=== PATIENT | female | born 1960 | race Caucasian/White ===

== ENCOUNTER 2017-07-21 03:49 | Emergency (ER) | payer OTHER ==
[~2017-07-21] VITALS: Ht 162.6 cm; Wt 79.4 kg
[~2017-07-21 03:49] MED LIST: ALBIPROI; ALBU.083IS; ALBU.083IS IH; ALBU3IS INH; ALBU90OI; ALBU90OI INH; ALBU90OI6 INH; ALBU90OI61 INH; AMOCLA500 PO; AMOX500 PO; ARIP10 PO; ARIP30 PO; ATEN50; ATEN50 PO; AZIT250 PO; Advair Hfa 230-12 GM; BENZ1 PO; BENZ100A PO; BENZ2 PO; BUSP15; BUSP5; CIPDEXSU BOTHEARS; CIPR500 PO; CLAR500 PO; CLARITIN10 MG PO; CLON.5; CLON.5 PO; CLON1 PO; CYCL10 PO; DOCU100 PO; DOXY100; DOXY100 PO; Duoneb 2.5-0.5 M3 ML INH; ECHINACEA PO; ERYT.5TO OD; Echinacea400 MG PO; FLUOXETINE; FLUSAL1005 INH; FLUSAL2505; FLUSAL2505 IH; FLUT.05NI; FLUT110OIA; FLUT44OIA IH; GUAPHELA PO; GUAPSEER; HYDACE10B; HYDACE10B PO; HYDACE5; HYDACE5 PO; HYDGUAL120 PO; HYDHCL25; HYDR1TAB94 PO; IBUP800; IPRAIS; IPRAOI; IPRAOI INH; ISODICACE; Inspiration1 EACH MC; LEVFLO500 PO; LEVO750 PO; LEVSOD25 PO; LEVSOD50 PO; LORA10 PO; MECL25 PO; META800 PO; METH10; METH40; METPRE4DP PO; MONT10T; MONT10T PO; Monodox100 MG PO; NAPR500; NAPR500 PO; NICO2 PO; NORT25; NYST100SU MT; Naprosyn500 MG PO; Norco 5-325 Ta1 EACH PO; OLANZAPINE; OMEP20ER PO; OXYACE5T PO; OXYACE7.5T PO; PRED10 PO; PRED20 PO; PROCODE120 PO; PROM25 PO; PSEU120ER PO; Prednisone20 MG PO; Pseudoephedrine30 MG PO; RANI150; RANI150 PO; RXCYCL10 PO; RXHYDACE PO; RXSULTRIDS PO; Ranitidine HCl300 M1 PO; SALM50IP; SALMOI6.5; SENN187 PO; SERT100; SODCHL.65S; SUDOGEST; SULTRIDS PO; SYMBYAX; Senna Plus Tab1 EACH PO; Sudogest30 MG PO; Synthroid25 MCG PO; TIOT18; TIOT18 IH; TRAM50; TRAM50 PO; TRAZ100; Therapeutic M1 EAC4 PO; Zithromax250 MG PO
[2017-07-21] MEDS ORDERED: CYCL10 PO (04:01)
[2017-07-21 04:33] LABS: BASOPHILS ABSOLUTE AUTO 0.01 K/mm3 (0.00-0.23); BASOPHILS PERCENT AUTO 0 % (0-2); EOSINOPHILS ABSOLUTE AUTO 0.09 K/mm3 (0.00-0.68); EOSINOPHILS PERCENT AUTO 2 % (0-6); Hematocrit 39.4 % (33.0-51.0); Hemoglobin 12.7 g/dL (11.5-16.0); IMMATURE GRAN ABSOLUTE AUTO 0.02 K/mm3 (0.00-0.10); IMMATURE GRAN PERCENT AUTO 0 % (0-1); LYMPHOCYTES ABSOLUTE AUTO 2.64 K/mm3 (0.84-5.20); LYMPHOCYTES PERCENT AUTO 43 % (21-46); MONOCYTES ABSOLUTE AUTO 0.48 K/mm3 (0.16-1.47); MONOCYTES PERCENT AUTO 8 % (4-13); Mean Corpuscular HGB 29.3 pg (26.0-34.0); Mean Corpuscular HGB Conc 32.2 g/dL (31.5-36.5); Mean Corpuscular Volume 91 fL (80-100); Mean Platelet Volume 10.1 fL (9.1-12.4); NEUTROPHILS ABSOLUTE AUTO 2.88 K/mm3 (1.96-9.15); NEUTROPHILS PERCENT AUTO 47 % (41-73); Platelet Count 242 K/mm3 (150-400); RDW Standard Deviation 43.3 fL (35.1-46.3); Red Blood Cell Count 4.34 M/mm3 (3.80-5.20); White Blood Cell Count 6.12 K/mm3 (4.00-11.30)
[2017-07-21 04:54] LABS: Alanine Aminotransfer (ALT/SGP 29 U/L (12-78); Albumin, Blood 3.4 g/dL (3.4-5.0); Alk Phos 77 U/L (50-136); Anion Gap 5 mmol/L (6-16); Aspartate Aminotrans (AST/SGOT 28 U/L (12-37); Bilirubin, Total 0.3 mg/dL (0.1-1.0); Blood Urea Nitrogen 16 mg/dL (8-24); Bun/Creatinine Ratio 22.2 (12.0-20.0); CO2, Blood 31 mmol/L (21-32); Calcium, Blood 8.8 mg/dL (8.5-10.1); Chloride, Blood 105 mmol/L (98-108); Creatinine, Blood 0.72 mg/dL (0.40-1.00); Globulin, Blood 3.4 g/dL (2.2-4.0); Glomerular Filtration Rate >60 (60-); Glucose, Blood 121 mg/dL (70-99); Potassium, Blood 3.6 mmol/L (3.5-5.5); Sodium, Blood 141 mmol/L (136-145); Total Protein, Blood 6.8 g/dL (6.4-8.2); Troponin I <0.015 ng/mL (0.000-0.040)
== END 2017-07-21 06:31 | disposition home or self-care (01) ==
LOC: ER 03:49
PROVIDERS: Emergency Medicine
DX: R07.9 Chest pain, unspecified (principal); J44.9 Chronic obstructive pulmonary disease, unspecified; J45.909 Unspecified asthma, uncomplicated; F31.9 Bipolar disorder, unspecified; I50.9 Heart failure, unspecified; Z79.899 Other long term (current) drug therapy; Z87.891 Personal history of nicotine dependence
CPT/HCPCS: 71046; 80053; 84484; 85025; 93005; 93010; 99283

== ENCOUNTER 2018-03-29 14:59 | Emergency (ER) | payer OTHER ==
[~2018-03-29] VITALS: Ht 162.6 cm; Wt 76.2 kg
[2018-03-29 15:15] LABS: BASOPHILS ABSOLUTE AUTO 0.02 K/mm3 (0.00-0.23); BASOPHILS PERCENT AUTO 0 % (0-2); EOSINOPHILS ABSOLUTE AUTO 0.06 K/mm3 (0.00-0.68); EOSINOPHILS PERCENT AUTO 1 % (0-6); Hematocrit 41.1 % (33.0-51.0); Hemoglobin 13.1 g/dL (11.5-16.0); IMMATURE GRAN ABSOLUTE AUTO 0.02 K/mm3 (0.00-0.10); IMMATURE GRAN PERCENT AUTO 0 % (0-1); LYMPHOCYTES ABSOLUTE AUTO 2.59 K/mm3 (0.84-5.20); LYMPHOCYTES PERCENT AUTO 39 % (21-46); MONOCYTES ABSOLUTE AUTO 0.55 K/mm3 (0.16-1.47); MONOCYTES PERCENT AUTO 8 % (4-13); Mean Corpuscular HGB 29.3 pg (26.0-34.0); Mean Corpuscular HGB Conc 31.9 g/dL (31.5-36.5); Mean Corpuscular Volume 92 fL (80-100); Mean Platelet Volume 10.1 fL (9.1-12.4); NEUTROPHILS ABSOLUTE AUTO 3.48 K/mm3 (1.96-9.15); NEUTROPHILS PERCENT AUTO 52 % (41-73); Platelet Count 282 K/mm3 (150-400); RDW Coefficient Variation 12.7 % (11.7-14.2); RDW Standard Deviation 43.2 fL (35.1-46.3); Red Blood Cell Count 4.47 M/mm3 (3.80-5.20); White Blood Cell Count 6.72 K/mm3 (4.00-11.30)
[2018-03-29 15:35] LABS: Alanine Aminotransfer (ALT/SGP 30 U/L (12-78); Albumin, Blood 3.5 g/dL (3.4-5.0); Albumin/Globulin Ratio 0.9 (0.8-1.8); Alk Phos 89 U/L (50-136); Anion Gap 5 mmol/L (6-16); Aspartate Aminotrans (AST/SGOT 25 U/L (12-37); Bilirubin, Total 0.3 mg/dL (0.1-1.0); Blood Urea Nitrogen 11 mg/dL (8-24); Bun/Creatinine Ratio 14.4 (12.0-20.0); CO2, Blood 32 mmol/L (21-32); Calcium, Blood 9.3 mg/dL (8.5-10.1); Chloride, Blood 103 mmol/L (98-108); Creatinine, Blood 0.76 mg/dL (0.40-1.00); Globulin, Blood 3.9 g/dL (2.2-4.0); Glomerular Filtration Rate >60 (60-); Glucose, Blood 111 mg/dL (70-99); Potassium, Blood 4.1 mmol/L (3.5-5.5); Sodium, Blood 140 mmol/L (136-145); Total Protein, Blood 7.4 g/dL (6.4-8.2); Troponin I <0.015 ng/mL (0.000-0.040)
[2018-03-29] MEDS ORDERED: Zantac150 MG PO (15:42)
[2018-03-29] MEDS ORDERED: ALBU2.5V5 INH (15:43)
[2018-03-29] MEDS ORDERED: ATEN25 PO (15:44)
[2018-03-29] MEDS ORDERED: NAPR500 PO (15:44)
[2018-03-29] MEDS ORDERED: ALBU90OI61 INH (15:44)
[2018-03-29] MEDS ORDERED: Echinacea400 MG PO (15:45)
[2018-03-29] MEDS ORDERED: Atrovent Inha12.9 GM INH (15:45)
[2018-03-29] MEDS ORDERED: LORPSEER24 PO (15:46)
[2018-03-29] MEDS ORDERED: ASCO500 PO (15:46)
[2018-03-29] MEDS ORDERED: BUDE6HFA INH (15:46)
[2018-03-29] MEDS ORDERED: LEVSOD125 PO (15:47)
[2018-03-29] MEDS ORDERED: CYCL10 PO (15:47)
[2018-03-29] MEDS ORDERED: ALLEGRA ALLERG180 M1 PO (15:48)
[2018-03-29] MEDS ORDERED: Verotin-Gr Cap1 EACH PO (15:48)
[2018-03-29] MEDS ORDERED: PSEU120ER PO (15:49)
[2018-03-29] MEDS ORDERED: NYST100000 PO (15:49)
[2018-03-29] MEDS ORDERED: Calcium 600 +1 EAC1 PO (15:49)
[2018-03-29] MEDS ORDERED: Percocet 7.5-31 EACH PO (15:50)
[2018-03-29] MEDS ORDERED: DULO30 PO (15:50)
[2018-03-29] MEDS ORDERED: GUAIFENESIN-CODE5 ML PO (15:52)
[2018-03-29] MEDS ORDERED: Ipratropium Bro15 ML (15:52)
[2018-03-29] MEDS ORDERED: TUDORZA PRESS400 MCG INH (15:53)
== END 2018-03-29 17:03 | disposition home or self-care (01) ==
LOC: ER 14:59
PROVIDERS: Physician Assistant
DX: J43.9 Emphysema, unspecified (principal); F31.9 Bipolar disorder, unspecified; I50.9 Heart failure, unspecified; F20.9 Schizophrenia, unspecified; F17.210 Nicotine dependence, cigarettes, uncomplicated; Z79.899 Other long term (current) drug therapy; Z79.51 Long term (current) use of inhaled steroids
CPT/HCPCS: 36415; 71046; 80053; 83880; 84484; 85025; 93005; 93010; 99284-25

== ENCOUNTER 2018-11-03 09:58 | Emergency (ER) | payer OTHER ==
[~2018-11-03] VITALS: Ht 162.6 cm; Wt 74.8 kg
[~2018-11-03 09:58] MED LIST changes: +ALBU2.5V5 INH; +ALLEGRA ALLERG180 M1 PO; +ASCO500 PO; +ATEN25 PO; +Atrovent Inha12.9 GM INH; +BUDE6HFA INH; +Calcium 600 +1 EAC1 PO; +DULO30 PO; +GUAIFENESIN-CODE5 ML PO; +Ipratropium Bro15 ML; +LEVSOD125 PO; +LORPSEER24 PO; +NYST100000 PO; +Percocet 7.5-31 EACH PO; +TUDORZA PRESS400 MCG INH; +Verotin-Gr Cap1 EACH PO; +Zantac150 MG PO
[2018-11-03 10:32] LABS: BASOPHILS ABSOLUTE AUTO 0.02 K/mm3 (0.00-0.23); BASOPHILS PERCENT AUTO 0 % (0-2); EOSINOPHILS ABSOLUTE AUTO 0.05 K/mm3 (0.00-0.68); EOSINOPHILS PERCENT AUTO 1 % (0-6); Hematocrit 44.3 % (33.0-51.0); Hemoglobin 13.8 g/dL (11.5-16.0); IMMATURE GRAN ABSOLUTE AUTO 0.02 K/mm3 (0.00-0.10); IMMATURE GRAN PERCENT AUTO 0 % (0-1); LYMPHOCYTES ABSOLUTE AUTO 1.64 K/mm3 (0.84-5.20); LYMPHOCYTES PERCENT AUTO 33 % (21-46); MONOCYTES ABSOLUTE AUTO 0.37 K/mm3 (0.16-1.47); MONOCYTES PERCENT AUTO 7 % (4-13); Mean Corpuscular HGB 29.6 pg (26.0-34.0); Mean Corpuscular HGB Conc 31.2 g/dL (31.5-36.5); Mean Corpuscular Volume 95 fL (80-100); Mean Platelet Volume 9.8 fL (9.1-12.4); NEUTROPHILS ABSOLUTE AUTO 2.95 K/mm3 (1.96-9.15); NEUTROPHILS PERCENT AUTO 58 % (41-73); Platelet Count 247 K/mm3 (150-400); RDW Coefficient Variation 14.6 % (11.7-14.2); Red Blood Cell Count 4.66 M/mm3 (3.80-5.20); White Blood Cell Count 5.05 K/mm3 (4.00-11.30)
[2018-11-03 10:56] LABS: Alanine Aminotransfer (ALT/SGP 30 U/L (12-78); Albumin, Blood 3.7 g/dL (3.4-5.0); Alk Phos 95 U/L (50-136); Anion Gap 6 mmol/L (6-16); Aspartate Aminotrans (AST/SGOT 13 U/L (12-37); Bilirubin, Total 0.2 mg/dL (0.1-1.0); Blood Urea Nitrogen 10 mg/dL (8-24); Bun/Creatinine Ratio 13.6 (12.0-20.0); CO2, Blood 29 mmol/L (21-32); Calcium, Blood 9.6 mg/dL (8.5-10.1); Chloride, Blood 105 mmol/L (98-108); Creatinine, Blood 0.73 mg/dL (0.40-1.00); Globulin, Blood 3.7 g/dL (2.2-4.0); Glomerular Filtration Rate >60 (60-); Glucose, Blood 104 mg/dL (70-99); Potassium, Blood 3.7 mmol/L (3.5-5.5); Sodium, Blood 140 mmol/L (136-145); Total Protein, Blood 7.4 g/dL (6.4-8.2); Troponin I <0.015 ng/mL (0.000-0.040)
== END 2018-11-03 12:58 | disposition home or self-care (01) ==
LOC: ER 09:58
PROVIDERS: Emergency Medicine
DX: R07.9 Chest pain, unspecified (principal); J44.9 Chronic obstructive pulmonary disease, unspecified; F31.9 Bipolar disorder, unspecified; I50.9 Heart failure, unspecified; F17.210 Nicotine dependence, cigarettes, uncomplicated; Z79.899 Other long term (current) drug therapy
CPT/HCPCS: 36415; 71046; 80053; 83690; 83880; 84484; 85025; 93005; 93010; 99285-25

== ENCOUNTER 2018-11-06 04:01 | Emergency (ER) | payer OTHER ==
[~2018-11-06] VITALS: Ht 162.6 cm; Wt 74.8 kg
[2018-11-06 04:23] LABS: BASOPHILS ABSOLUTE AUTO 0.02 K/mm3 (0.00-0.23); BASOPHILS PERCENT AUTO 0 % (0-2); EOSINOPHILS ABSOLUTE AUTO 0.08 K/mm3 (0.00-0.68); EOSINOPHILS PERCENT AUTO 1 % (0-6); Hematocrit 43.8 % (33.0-51.0); Hemoglobin 13.6 g/dL (11.5-16.0); IMMATURE GRAN ABSOLUTE AUTO 0.03 K/mm3 (0.00-0.10); IMMATURE GRAN PERCENT AUTO 0 % (0-1); LYMPHOCYTES ABSOLUTE AUTO 2.64 K/mm3 (0.84-5.20); LYMPHOCYTES PERCENT AUTO 39 % (21-46); MONOCYTES ABSOLUTE AUTO 0.53 K/mm3 (0.16-1.47); MONOCYTES PERCENT AUTO 8 % (4-13); Mean Corpuscular HGB 29.8 pg (26.0-34.0); Mean Corpuscular HGB Conc 31.1 g/dL (31.5-36.5); Mean Corpuscular Volume 96 fL (80-100); Mean Platelet Volume 9.7 fL (9.1-12.4); NEUTROPHILS ABSOLUTE AUTO 3.48 K/mm3 (1.96-9.15); NEUTROPHILS PERCENT AUTO 51 % (41-73); Platelet Count 249 K/mm3 (150-400); RDW Coefficient Variation 14.7 % (11.7-14.2); RDW Standard Deviation 51.9 fL (35.1-46.3); Red Blood Cell Count 4.57 M/mm3 (3.80-5.20); White Blood Cell Count 6.78 K/mm3 (4.00-11.30)
[2018-11-06 04:32] LABS: Base Excess Venous 6.6 mmol/L; Bicarbonate Venous 27.6 mmol/L (24.0-30.0); PCO2 Venous 59.1 mmHg (38-42); PO2 Venous 24.1 mmHg (38-42); pH Blood Venous 7.35 (7.34-7.37)
[2018-11-06 04:42] LABS: Alanine Aminotransfer (ALT/SGP 36 U/L (12-78); Albumin, Blood 3.7 g/dL (3.4-5.0); Alk Phos 86 U/L (50-136); Anion Gap 4 mmol/L (6-16); Aspartate Aminotrans (AST/SGOT 21 U/L (12-37); Bilirubin, Total 0.2 mg/dL (0.1-1.0); Blood Urea Nitrogen 16 mg/dL (8-24); Bun/Creatinine Ratio 21.4 (12.0-20.0); CO2, Blood 32 mmol/L (21-32); Calcium, Blood 9.5 mg/dL (8.5-10.1); Chloride, Blood 103 mmol/L (98-108); Creatinine, Blood 0.75 mg/dL (0.40-1.00); Globulin, Blood 3.6 g/dL (2.2-4.0); Glomerular Filtration Rate >60 (60-); Glucose, Blood 96 mg/dL (70-99); Potassium, Blood 4.2 mmol/L (3.5-5.5); Sodium, Blood 139 mmol/L (136-145); Total Protein, Blood 7.3 g/dL (6.4-8.2); Troponin I <0.015 ng/mL (0.000-0.040)
[2018-11-06] MEDS ORDERED: Prednisone20 MG PO (05:33)
== END 2018-11-06 05:55 | disposition home or self-care (01) ==
LOC: ER 04:01
PROVIDERS: Emergency Medicine
DX: J44.1 Chronic obstructive pulmonary disease with (acute) exacerbation (principal); F17.210 Nicotine dependence, cigarettes, uncomplicated; I50.9 Heart failure, unspecified; Z79.899 Other long term (current) drug therapy
CPT/HCPCS: 71046; 80053; 82803; 84484; 85025; 93005; 93010; 96374; 99285-25; J2930

== ENCOUNTER 2019-01-10 02:34 | Emergency (ER) | payer OTHER ==
[~2019-01-10] VITALS: Ht 162.6 cm; Wt 76.7 kg
[~2019-01-10 02:34] MED LIST changes: +ATOR80 PO; +Aspir 8181 MG PO; +Cyclobenzaprine5 MG PO; +DULO60 PO; +LEVO-T25 MCG PO; +NITR.4SL SL; +ONDA4ODT MM; +Percocet 5-3251 EACH PO; -Percocet 7.5-31 EACH PO; +TRAZ50 PO; +ZYRTEC10 M1 PO
[2019-01-10 03:03] LABS: BASOPHILS ABSOLUTE AUTO 0.03 K/mm3 (0.00-0.23); BASOPHILS PERCENT AUTO 0 % (0-2); EOSINOPHILS ABSOLUTE AUTO 0.07 K/mm3 (0.00-0.68); EOSINOPHILS PERCENT AUTO 1 % (0-6); Hematocrit 41.6 % (33.0-51.0); IMMATURE GRAN ABSOLUTE AUTO 0.02 K/mm3 (0.00-0.10); IMMATURE GRAN PERCENT AUTO 0 % (0-1); LYMPHOCYTES ABSOLUTE AUTO 2.59 K/mm3 (0.84-5.20); LYMPHOCYTES PERCENT AUTO 36 % (21-46); MONOCYTES ABSOLUTE AUTO 0.53 K/mm3 (0.16-1.47); MONOCYTES PERCENT AUTO 8 % (4-13); Mean Corpuscular HGB 29.8 pg (26.0-34.0); Mean Corpuscular HGB Conc 31.3 g/dL (31.5-36.5); Mean Corpuscular Volume 95 fL (80-100); Mean Platelet Volume 9.6 fL (9.1-12.4); NEUTROPHILS ABSOLUTE AUTO 3.87 K/mm3 (1.96-9.15); NEUTROPHILS PERCENT AUTO 54 % (41-73); Platelet Count 325 K/mm3 (150-400); RDW Coefficient Variation 13.6 % (11.7-14.2); RDW Standard Deviation 48.1 fL (35.1-46.3); Red Blood Cell Count 4.36 M/mm3 (3.80-5.20); White Blood Cell Count 7.11 K/mm3 (4.00-11.30)
[2019-01-10 03:32] LABS: Alanine Aminotransfer (ALT/SGP 29 U/L (12-78); Albumin, Blood 3.5 g/dL (3.4-5.0); Alk Phos 89 U/L (50-136); Anion Gap 3 mmol/L (6-16); Aspartate Aminotrans (AST/SGOT 23 U/L (12-37); Bilirubin, Total 0.2 mg/dL (0.1-1.0); Blood Urea Nitrogen 14 mg/dL (8-24); Bun/Creatinine Ratio 18.6 (12.0-20.0); CO2, Blood 31 mmol/L (21-32); Chloride, Blood 107 mmol/L (98-108); Creatinine, Blood 0.75 mg/dL (0.40-1.00); Globulin, Blood 3.5 g/dL (2.2-4.0); Glomerular Filtration Rate >60 (60-); Glucose, Blood 106 mg/dL (70-99); Potassium, Blood 3.9 mmol/L (3.5-5.5); Sodium, Blood 141 mmol/L (136-145)
[2019-01-10 03:38] LABS: Calcium, Blood 9.3 mg/dL (8.5-10.1)
[2019-01-10] MEDS ORDERED: Miralax17 GM PO (04:34)
== END 2019-01-10 04:49 | disposition home or self-care (01) ==
LOC: ER 02:34
PROVIDERS: Emergency Medicine
DX: R10.13 Epigastric pain (principal); R11.2 Nausea with vomiting, unspecified; J44.9 Chronic obstructive pulmonary disease, unspecified; I50.9 Heart failure, unspecified; Z79.899 Other long term (current) drug therapy
CPT/HCPCS: 36415; 74019; 80053; 83690; 85025; 94640; 96374; 99284-25; J2405

== ENCOUNTER 2019-05-04 18:43 | Emergency (ER) | payer OTHER ==
[~2019-05-04] VITALS: Ht 162.6 cm; Wt 74.8 kg
[~2019-05-04 18:43] MED LIST changes: +Miralax17 GM PO
[2019-05-04 19:34] LABS: BASOPHILS ABSOLUTE AUTO 0.02 K/mm3 (0.00-0.23); BASOPHILS PERCENT AUTO 0 % (0-2); EOSINOPHILS PERCENT AUTO 1 % (0-6); Hematocrit 39.7 % (33.0-51.0); Hemoglobin 12.6 g/dL (11.5-16.0); IMMATURE GRAN ABSOLUTE AUTO 0.01 K/mm3 (0.00-0.10); IMMATURE GRAN PERCENT AUTO 0 % (0-1); LYMPHOCYTES ABSOLUTE AUTO 2.24 K/mm3 (0.84-5.20); LYMPHOCYTES PERCENT AUTO 29 % (21-46); MONOCYTES PERCENT AUTO 8 % (4-13); Mean Corpuscular HGB 30.1 pg (26.0-34.0); Mean Corpuscular HGB Conc 31.7 g/dL (31.5-36.5); Mean Corpuscular Volume 95 fL (80-100); Mean Platelet Volume 9.9 fL (9.1-12.4); NEUTROPHILS ABSOLUTE AUTO 4.73 K/mm3 (1.96-9.15); NEUTROPHILS PERCENT AUTO 61 % (41-73); Platelet Count 252 K/mm3 (150-400); RDW Coefficient Variation 14.1 % (11.7-14.2); RDW Standard Deviation 49.6 fL (35.1-46.3); Red Blood Cell Count 4.19 M/mm3 (3.80-5.20)
[2019-05-04 20:04] LABS: Alanine Aminotransfer (ALT/SGP 26 U/L (12-78); Albumin, Blood 3.6 g/dL (3.4-5.0); Albumin/Globulin Ratio 1.1 (0.8-1.8); Alk Phos 81 U/L (50-136); Anion Gap 2 mmol/L (6-16); Aspartate Aminotrans (AST/SGOT 13 U/L (12-37); Bilirubin, Total 0.4 mg/dL (0.1-1.0); Blood Urea Nitrogen 18 mg/dL (8-24); CO2, Blood 31 mmol/L (21-32); Calcium, Blood 8.9 mg/dL (8.5-10.1); Chloride, Blood 108 mmol/L (98-108); Creatinine, Blood 0.78 mg/dL (0.40-1.00); Globulin, Blood 3.2 g/dL (2.2-4.0); Glomerular Filtration Rate >60 (60-); Glucose, Blood 110 mg/dL (70-99); Potassium, Blood 4.3 mmol/L (3.5-5.5); Sodium, Blood 141 mmol/L (136-145); Total Protein, Blood 6.8 g/dL (6.4-8.2); Troponin I <0.015 ng/mL (0.000-0.040)
[2019-05-04] MEDS ORDERED: Prednisone20 MG PO (20:57)
[2019-05-04] MEDS ORDERED: LEVO750 PO (20:57)
== END 2019-05-04 21:38 | disposition home or self-care (01) ==
LOC: ER 18:43
PROVIDERS: Emergency Medicine
DX: J44.0 Chronic obstructive pulmonary disease with (acute) lower respiratory infection (principal); J44.1 Chronic obstructive pulmonary disease with (acute) exacerbation; J20.9 Acute bronchitis, unspecified; I50.9 Heart failure, unspecified; F31.9 Bipolar disorder, unspecified; F17.200 Nicotine dependence, unspecified, uncomplicated; Z79.899 Other long term (current) drug therapy; Z99.81 Dependence on supplemental oxygen
CPT/HCPCS: 36415; 71046; 80053; 84484; 85025; 93005; 93010; 94644; 96374; 99285-25; J2930

== ENCOUNTER → 2020-09-29 | Outpatient (CLI) | payer OTHER | END | disposition home or self-care (01) | LOC: LAB SHORT 12:00 → LAB 12:00 | DX: R05 Cough (principal) | CPT/HCPCS: 87070; 87077; 87186; 87205 ==

== ENCOUNTER 2020-10-08 11:49 | Emergency (ER) | payer OTHER ==
[~2020-10-08] VITALS: Ht 162.6 cm; Wt 81.7 kg
[2020-10-08] MEDS ORDERED: AMOCLA500 PO (12:01)
[2020-10-08 12:05] LABS: BASOPHILS ABSOLUTE AUTO 0.02 K/mm3 (0.00-0.23); BASOPHILS PERCENT AUTO 0 % (0-2); EOSINOPHILS ABSOLUTE AUTO 0.05 K/mm3 (0.00-0.68); EOSINOPHILS PERCENT AUTO 1 % (0-6); Hemoglobin 11.3 g/dL (11.5-16.0); IMMATURE GRAN ABSOLUTE AUTO 0.02 K/mm3 (0.00-0.10); IMMATURE GRAN PERCENT AUTO 0 % (0-1); LYMPHOCYTES ABSOLUTE AUTO 1.44 K/mm3 (0.84-5.20); LYMPHOCYTES PERCENT AUTO 25 % (21-46); MONOCYTES ABSOLUTE AUTO 0.61 K/mm3 (0.16-1.47); MONOCYTES PERCENT AUTO 10 % (4-13); Mean Corpuscular HGB Conc 31.4 g/dL (31.5-36.5); Mean Corpuscular Volume 93 fL (80-100); Mean Platelet Volume 9.9 fL (9.1-12.4); NEUTROPHILS ABSOLUTE AUTO 3.73 K/mm3 (1.96-9.15); NEUTROPHILS PERCENT AUTO 64 % (41-73); Platelet Count 265 K/mm3 (150-400); RDW Coefficient Variation 13.4 % (11.7-14.2); RDW Standard Deviation 45.5 fL (35.1-46.3); Red Blood Cell Count 3.89 M/mm3 (3.80-5.20); White Blood Cell Count 5.87 K/mm3 (4.00-11.30)
[2020-10-08 12:29] LABS: Alanine Aminotransfer (ALT/SGP 24 U/L (12-78); Albumin, Blood 3.3 g/dL (3.4-5.0); Albumin/Globulin Ratio 0.9 (0.8-1.8); Alk Phos 97 U/L (50-136); Anion Gap 2 mmol/L (6-16); Aspartate Aminotrans (AST/SGOT 13 U/L (12-37); Bilirubin, Total 0.3 mg/dL (0.1-1.0); Blood Urea Nitrogen 21 mg/dL (8-24); Bun/Creatinine Ratio 35.2 (12.0-20.0); CO2, Blood 32 mmol/L (21-32); Calcium, Blood 9.1 mg/dL (8.5-10.1); Chloride, Blood 105 mmol/L (98-108); Globulin, Blood 3.7 g/dL (2.2-4.0); Glomerular Filtration Rate >60 (60-); Glucose, Blood 115 mg/dL (70-99); Potassium, Blood 4.1 mmol/L (3.5-5.5); Sodium, Blood 139 mmol/L (136-145); Troponin I <0.015 ng/mL (0.000-0.040)
== END 2020-10-08 15:44 | disposition home or self-care (01) ==
LOC: ER 11:49
PROVIDERS: Emergency Medicine
DX: R07.9 Chest pain, unspecified (principal); R10.13 Epigastric pain; J44.9 Chronic obstructive pulmonary disease, unspecified; K21.9 Gastro-esophageal reflux disease without esophagitis; E03.9 Hypothyroidism, unspecified; I50.9 Heart failure, unspecified; F17.200 Nicotine dependence, unspecified, uncomplicated
CPT/HCPCS: 71045; 80053; 84484; 85025; 93005; 93010; 96374; 99285-25; A9270; J2270

== ENCOUNTER 2021-06-23 17:48 | Emergency (ER) | payer OTHER ==
[~2021-06-23] VITALS: Ht 162.6 cm; Wt 75.8 kg
[2021-06-23] MEDS ORDERED: FAMO20 PO (18:15)
[2021-06-23] MEDS ORDERED: OMEP20ER PO (18:15)
[2021-06-23] MEDS ORDERED: BUSP5 PO (18:15)
[2021-06-23] MEDS ORDERED: LEVSOD25 PO (18:15)
[2021-06-23 18:21] LABS: BASOPHILS ABSOLUTE AUTO 0.01 K/mm3 (0.00-0.23); BASOPHILS PERCENT AUTO 0 % (0-2); EOSINOPHILS ABSOLUTE AUTO 0.04 K/mm3 (0.00-0.68); EOSINOPHILS PERCENT AUTO 1 % (0-6); Hematocrit 34.5 % (33.0-51.0); Hemoglobin 10.4 g/dL (11.5-16.0); IMMATURE GRAN ABSOLUTE AUTO 0.03 K/mm3 (0.00-0.10); IMMATURE GRAN PERCENT AUTO 0 % (0-1); LYMPHOCYTES ABSOLUTE AUTO 1.83 K/mm3 (0.84-5.20); LYMPHOCYTES PERCENT AUTO 21 % (21-46); MONOCYTES ABSOLUTE AUTO 0.75 K/mm3 (0.16-1.47); MONOCYTES PERCENT AUTO 9 % (4-13); Mean Corpuscular HGB 27.2 pg (26.0-34.0); Mean Corpuscular HGB Conc 30.1 g/dL (31.5-36.5); Mean Corpuscular Volume 90 fL (80-100); NEUTROPHILS ABSOLUTE AUTO 6.17 K/mm3 (1.96-9.15); NEUTROPHILS PERCENT AUTO 70 % (41-73); Platelet Count 237 K/mm3 (150-400); RDW Coefficient Variation 13.5 % (11.7-14.2); RDW Standard Deviation 44.5 fL (35.1-46.3); Red Blood Cell Count 3.82 M/mm3 (3.80-5.20); White Blood Cell Count 8.83 K/mm3 (4.00-11.30)
[2021-06-23 18:37] LABS: Alanine Aminotransfer (ALT/SGP 25 U/L (12-78); Albumin, Blood 3.1 g/dL (3.4-5.0); Albumin/Globulin Ratio 0.8 (0.8-1.8); Alk Phos 75 U/L (50-136); Anion Gap 1 mmol/L (6-16); Aspartate Aminotrans (AST/SGOT 15 U/L (12-37); Bilirubin, Total 0.3 mg/dL (0.1-1.0); Blood Urea Nitrogen 14 mg/dL (8-24); Bun/Creatinine Ratio 25.7 (12.0-20.0); CO2, Blood 35 mmol/L (21-32); Chloride, Blood 105 mmol/L (98-108); Creatinine, Blood 0.55 mg/dL (0.40-1.00); Globulin, Blood 3.8 g/dL (2.2-4.0); Glomerular Filtration Rate >60 (60-); Glucose, Blood 98 mg/dL (70-99); Potassium, Blood 3.7 mmol/L (3.5-5.5); Sodium, Blood 141 mmol/L (136-145); Total Protein, Blood 6.9 g/dL (6.4-8.2); Troponin I <0.015 ng/mL (0.000-0.040)
[2021-06-23 19:14] LABS: Source, Urine Voided
[2021-06-23 19:35] LABS: Appearance, Urine Clear (Clear); Bilirubin, Urine Neg (Neg); Blood, Urine 2+ (Neg); Color, Urine Yellow (P-Yellow); Glucose Qualitative, Urine Neg (Neg); Ketones, Urine Neg (Neg); Leukocyte Esterase, Urine 1+ (Neg); Nitrite, Urine Pos (Neg); Protein, Urine 2+ (Neg); Urobilinogen, Urine NORM (Normal)
[2021-06-23 19:37] LABS: Bacteria Many /hpf; Squamous Epithelial Cells Few /hpf (Few)
[2021-06-23] MEDS ORDERED: PROM25 PO (20:01)
[2021-06-23] MEDS ORDERED: IBUP600 PO (20:01)
[2021-06-26] MEDS ORDERED: CEFD300 PO (13:09)
== END 2021-06-23 20:15 | disposition home or self-care (01) ==
LOC: ER 17:48
PROVIDERS: Emergency Medicine
DX: R07.9 Chest pain, unspecified (principal); R51.9 Headache, unspecified; Z79.899 Other long term (current) drug therapy; J44.9 Chronic obstructive pulmonary disease, unspecified; K21.9 Gastro-esophageal reflux disease without esophagitis; E03.9 Hypothyroidism, unspecified; I50.9 Heart failure, unspecified; F17.210 Nicotine dependence, cigarettes, uncomplicated
CPT/HCPCS: 36415; 70450; 71045; 80053; 81001; 84484; 85025; 87077; 87086; 87186; 93005; 93010; 96374; 96375; 99285-25; J1790; J1885

== ENCOUNTER → 2021-08-08 | Outpatient (CLI) | payer OTHER ==
[~2021-08-08] MED LIST changes: +BUSP5 PO; +CEFD300 PO; +FAMO20 PO; +IBUP600 PO
[2021-08-09 08:11] LABS: A/G RATIO 1.8 (1.2-2.2); ALKALINE PHOSPHATASE, S 84 IU/L (44-121); ALT (SGPT) 16 IU/L (0-32); AST (SGOT) 15 IU/L (0-40); BASOS 0 % (Not Estab.); BILIRUBIN, TOTAL <0.2 mg/dL (0.0-1.2); BUN 13 mg/dL (8-27); BUN/CREATININE RATIO 22 (12-28); CALCIUM, SERUM 9.6 mg/dL (8.7-10.3); CARBON DIOXIDE, TOTAL 31 mmol/L (20-29); CHLORIDE, SERUM 102 mmol/L (96-106); CHOLESTEROL, TOTAL 169 mg/dL (100-199); EGFR IF AFRICN AM 113 (>59); EGFR IF NONAFRICN AM 98 (>59); EOS 1 % (Not Estab.); GLOBULIN, TOTAL 2.5 g/dL (1.5-4.5); GLUCOSE, SERUM 109 mg/dL (65-99); HDL CHOLESTEROL 53 mg/dL (>39); HEMATOCRIT 35.4 % (34.0-46.6); HEMOGLOBIN 11.4 g/dL (11.1-15.9); IMMATURE GRANULOCYTES 0 % (Not Estab.); LDL CHOLESTEROL CALC 91 mg/dL (0-99); LYMPHS 19 % (Not Estab.); LYMPHS (ABSOLUTE) 0.9 x10E3/uL (0.7-3.1); MCH 27.5 pg (26.6-33.0); MCHC 32.2 g/dL (31.5-35.7); MCV 85 fL (79-97); MONOCYTES 9 % (Not Estab.); MONOCYTES(ABSOLUTE) 0.4 x10E3/uL (0.1-0.9); NEUTROPHILS 71 % (Not Estab.); NEUTROPHILS (ABSOLUTE) 3.3 x10E3/uL (1.4-7.0); PLATELETS 233 x10E3/uL (150-450); POTASSIUM, SERUM 4.3 mmol/L (3.5-5.2); PROTEIN, TOTAL, SERUM 6.9 g/dL (6.0-8.5); RBC 4.15 x10E6/uL (3.77-5.28); RDW 13.7 % (11.7-15.4); SODIUM, SERUM 142 mmol/L (134-144); TRIGLYCERIDES 146 mg/dL (0-149); VLDL CHOLESTEROL CAL 25 mg/dL (5-40); WBC 4.7 x10E3/uL (3.4-10.8)
== END | disposition home or self-care (01) ==
LOC: LAB SHORT 11:30
PROVIDERS: Family Medicine
DX: Z51.81 Encounter for therapeutic drug level monitoring (principal); Z79.899 Other long term (current) drug therapy
CPT/HCPCS: 80053; 80061; 82306; 84443; 85025

== ENCOUNTER 2022-05-22 20:52 | Emergency (ER) | payer OTHER ==
[~2022-05-22] VITALS: Ht 162.6 cm; Wt 76.7 kg
[2022-05-22 23:02] LABS: BASOPHILS ABSOLUTE AUTO 0.03 K/mm3 (0.00-0.23); BASOPHILS PERCENT AUTO 1 % (0-2); EOSINOPHILS ABSOLUTE AUTO 0.09 K/mm3 (0.00-0.68); EOSINOPHILS PERCENT AUTO 1 % (0-6); Hematocrit 31.7 % (33.0-51.0); Hemoglobin 9.6 g/dL (11.5-16.0); IMMATURE GRAN ABSOLUTE AUTO 0.01 K/mm3 (0.00-0.10); IMMATURE GRAN PERCENT AUTO 0 % (0-1); LYMPHOCYTES ABSOLUTE AUTO 2.31 K/mm3 (0.84-5.20); LYMPHOCYTES PERCENT AUTO 37 % (21-46); MONOCYTES ABSOLUTE AUTO 0.49 K/mm3 (0.16-1.47); MONOCYTES PERCENT AUTO 8 % (4-13); Mean Corpuscular HGB 25.9 pg (26.0-34.0); Mean Corpuscular HGB Conc 30.3 g/dL (31.5-36.5); Mean Corpuscular Volume 85 fL (80-100); Mean Platelet Volume 9.9 fL (9.1-12.4); NEUTROPHILS PERCENT AUTO 54 % (41-73); Platelet Count 239 K/mm3 (150-400); RDW Coefficient Variation 15.5 % (11.7-14.2); RDW Standard Deviation 48.8 fL (35.1-46.3); Red Blood Cell Count 3.71 M/mm3 (3.80-5.20); White Blood Cell Count 6.33 K/mm3 (4.00-11.30)
[2022-05-22 23:20] LABS: Albumin, Blood 3.6 g/dL (3.4-5.0); Bilirubin, Total 0.3 mg/dL (0.1-1.0); Bun/Creatinine Ratio 24.6 (12.0-20.0); Calcium, Blood 8.9 mg/dL (8.5-10.1); Creatinine, Blood 0.65 mg/dL (0.40-1.00); Globulin, Blood 3.7 g/dL (2.2-4.0); Potassium, Blood 3.9 mmol/L (3.5-5.5); Total Protein, Blood 7.3 g/dL (6.4-8.2)
[2022-05-22 23:47] LABS: Influenza A, PCR NEGATIVE (NEGATIVE); Influenza B, PCR NEGATIVE (NEGATIVE); Resp Syncytial Virus, PCR NEGATIVE (NEGATIVE); SARS-Cov-2 (COVID-19) PCR, MMC NEGATIVE (NEGATIVE)
[2022-05-23] MEDS ORDERED: PRED20 PO (01:04)
[2022-05-23] MEDS ORDERED: AZIT250 PO (01:04)
== END 2022-05-23 01:29 | disposition home or self-care (01) ==
LOC: ER 20:52
PROVIDERS: Physician Assistant; Student in an Organized Health Care Education/Training Program
DX: J44.1 Chronic obstructive pulmonary disease with (acute) exacerbation (principal); R09.81 Nasal congestion; E03.9 Hypothyroidism, unspecified; K21.9 Gastro-esophageal reflux disease without esophagitis; I50.9 Heart failure, unspecified; F17.210 Nicotine dependence, cigarettes, uncomplicated; Z79.899 Other long term (current) drug therapy; Z79.890 Hormone replacement therapy; Z20.822 Contact with and (suspected) exposure to COVID-19
CPT/HCPCS: 0241U; 36415; 71045; 80053; 83880; 84484; 85025; 85379; 93005; 93010; 94640; 94664; J2930

== ENCOUNTER 2022-06-18 10:19 | Emergency (ER) | payer OTHER ==
[~2022-06-18] VITALS: Ht 162.6 cm; Wt 78.0 kg
[2022-06-18 11:50] LABS: BASOPHILS ABSOLUTE AUTO 0.02 K/mm3 (0.00-0.23); BASOPHILS PERCENT AUTO 0 % (0-2); EOSINOPHILS ABSOLUTE AUTO 0.09 K/mm3 (0.00-0.68); EOSINOPHILS PERCENT AUTO 1 % (0-6); Hematocrit 33.3 % (33.0-51.0); Hemoglobin 10.1 g/dL (11.5-16.0); IMMATURE GRAN ABSOLUTE AUTO 0.02 K/mm3 (0.00-0.10); IMMATURE GRAN PERCENT AUTO 0 % (0-1); LYMPHOCYTES PERCENT AUTO 40 % (21-46); MONOCYTES PERCENT AUTO 8 % (4-13); Mean Corpuscular HGB Conc 30.3 g/dL (31.5-36.5); Mean Corpuscular Volume 86 fL (80-100); NEUTROPHILS ABSOLUTE AUTO 3.14 K/mm3 (1.96-9.15); NEUTROPHILS PERCENT AUTO 50 % (41-73); Platelet Count 241 K/mm3 (150-400); RDW Standard Deviation 47.2 fL (35.1-46.3); Red Blood Cell Count 3.89 M/mm3 (3.80-5.20); White Blood Cell Count 6.27 K/mm3 (4.00-11.30)
[2022-06-18 12:14] LABS: Albumin, Blood 3.5 g/dL (3.4-5.0); Albumin/Globulin Ratio 1.1 (0.8-1.8); Bilirubin, Total 0.3 mg/dL (0.1-1.0); Bun/Creatinine Ratio 40.7 (12.0-20.0); Calcium, Blood 9.1 mg/dL (8.5-10.1); Creatinine, Blood 0.64 mg/dL (0.40-1.00); Globulin, Blood 3.2 g/dL (2.2-4.0); Potassium, Blood 3.6 mmol/L (3.5-5.5); Total Protein, Blood 6.7 g/dL (6.4-8.2)
[2022-06-18 12:42] LABS: International Normalized Ratio 1.04; Prothrombin Time Results 10.9 Sec (9.7-11.5)
[2022-06-18] MEDS ORDERED: CLOP75 PO (13:36)
== END 2022-06-18 14:00 | disposition home or self-care (01) ==
LOC: ER 10:19
PROVIDERS: Physician Assistant
DX: I63.9 Cerebral infarction, unspecified (principal); G81.94 Hemiplegia, unspecified affecting left nondominant side; R29.810 Facial weakness; J44.9 Chronic obstructive pulmonary disease, unspecified; I50.9 Heart failure, unspecified; F17.210 Nicotine dependence, cigarettes, uncomplicated; Z79.899 Other long term (current) drug therapy
CPT/HCPCS: 36415; 70450; 70496; 70498; 80053; 85025; 85610; 93005; 93010; 94640; 94664; A9270; Q9967

== ENCOUNTER 2022-08-03 19:14 | Emergency (ER) | payer OTHER ==
[~2022-08-03] VITALS: Ht 162.6 cm; Wt 74.8 kg
[~2022-08-03 19:14] MED LIST changes: +CLOP75 PO
[2022-08-03 19:37] LABS: BASOPHILS ABSOLUTE AUTO 0.02 K/mm3 (0.00-0.23); BASOPHILS PERCENT AUTO 0 % (0-2); EOSINOPHILS ABSOLUTE AUTO 0.07 K/mm3 (0.00-0.68); EOSINOPHILS PERCENT AUTO 1 % (0-6); Hemoglobin 8.8 g/dL (11.5-16.0); IMMATURE GRAN ABSOLUTE AUTO 0.02 K/mm3 (0.00-0.10); IMMATURE GRAN PERCENT AUTO 0 % (0-1); LYMPHOCYTES ABSOLUTE AUTO 1.53 K/mm3 (0.84-5.20); LYMPHOCYTES PERCENT AUTO 24 % (21-46); MONOCYTES PERCENT AUTO 9 % (4-13); Mean Corpuscular HGB 25.1 pg (26.0-34.0); Mean Corpuscular HGB Conc 29.3 g/dL (31.5-36.5); Mean Corpuscular Volume 86 fL (80-100); Mean Platelet Volume 9.5 fL (9.1-12.4); NEUTROPHILS ABSOLUTE AUTO 4.15 K/mm3 (1.96-9.15); NEUTROPHILS PERCENT AUTO 65 % (41-73); Platelet Count 257 K/mm3 (150-400); RDW Coefficient Variation 14.6 % (11.7-14.2); RDW Standard Deviation 45.8 fL (35.1-46.3); White Blood Cell Count 6.39 K/mm3 (4.00-11.30)
[2022-08-03 19:47] LABS: Albumin, Blood 2.5 g/dL (3.4-5.0); Albumin/Globulin Ratio 0.6 (0.8-1.8); Bilirubin, Total 0.2 mg/dL (0.1-1.0); Calcium, Blood 9.5 mg/dL (8.5-10.1); Creatinine, Blood 0.57 mg/dL (0.40-1.00); Globulin, Blood 4.3 g/dL (2.2-4.0); Potassium, Blood 3.7 mmol/L (3.5-5.5); Total Protein, Blood 6.8 g/dL (6.4-8.2)
[2022-08-03 20:51] LABS: Influenza A, PCR NEGATIVE (NEGATIVE); Influenza B, PCR NEGATIVE (NEGATIVE); Resp Syncytial Virus, PCR NEGATIVE (NEGATIVE); SARS-Cov-2 (COVID-19) PCR, MMC NEGATIVE (NEGATIVE)
[2022-08-03] MEDS ORDERED: LEVO750 PO (21:27)
[2022-08-03] MEDS ORDERED: Prednisone20 MG PO (21:27)
== END 2022-08-03 21:20 | disposition home or self-care (01) ==
LOC: ER 19:14
PROVIDERS: Emergency Medicine
DX: J44.1 Chronic obstructive pulmonary disease with (acute) exacerbation (principal); H60.91 Unspecified otitis externa, right ear; I50.9 Heart failure, unspecified; Z79.899 Other long term (current) drug therapy; Z79.890 Hormone replacement therapy; Z79.52 Long term (current) use of systemic steroids; Z20.822 Contact with and (suspected) exposure to COVID-19
CPT/HCPCS: 0241U; 71046; 80053; 83880; 84484; 85025; 93005; 93010; 94640; 94664; A9270; J7512

== ENCOUNTER 2022-12-11 19:15 | Emergency (ER) | payer OTHER ==
[~2022-12-11] VITALS: Ht 162.6 cm; Wt 70.8 kg
[2022-12-11 19:45] VITALS: BP 129/65
[2022-12-11 20:03] LABS: BASOPHILS ABSOLUTE AUTO 0.03 K/mm3 (0.00-0.23); BASOPHILS PERCENT AUTO 0 % (0-2); EOSINOPHILS ABSOLUTE AUTO 0.07 K/mm3 (0.00-0.68); EOSINOPHILS PERCENT AUTO 1 % (0-6); Hemoglobin 8.2 g/dL (11.5-16.0); IMMATURE GRAN ABSOLUTE AUTO 0.02 K/mm3 (0.00-0.10); IMMATURE GRAN PERCENT AUTO 0 % (0-1); LYMPHOCYTES ABSOLUTE AUTO 2.43 K/mm3 (0.84-5.20); LYMPHOCYTES PERCENT AUTO 32 % (21-46); MONOCYTES PERCENT AUTO 8 % (4-13); Mean Corpuscular HGB Conc 29.3 g/dL (31.5-36.5); Mean Corpuscular Volume 79 fL (80-100); Mean Platelet Volume 10.3 fL (9.1-12.4); NEUTROPHILS ABSOLUTE AUTO 4.37 K/mm3 (1.96-9.15); NEUTROPHILS PERCENT AUTO 58 % (41-73); Platelet Count 242 K/mm3 (150-400); RDW Coefficient Variation 15.6 % (11.7-14.2); RDW Standard Deviation 44.9 fL (35.1-46.3); Red Blood Cell Count 3.56 M/mm3 (3.80-5.20); White Blood Cell Count 7.52 K/mm3 (4.00-11.30)
[2022-12-11 20:05] LABS: Albumin, Blood 3.2 g/dL (3.4-5.0); Bilirubin, Total 0.2 mg/dL (0.1-1.0); Bun/Creatinine Ratio 31.1 (12.0-20.0); Creatinine, Blood 0.48 mg/dL (0.40-1.00); Globulin, Blood 3.3 g/dL (2.2-4.0); Total Protein, Blood 6.5 g/dL (6.4-8.2)
== END 2022-12-11 22:35 | disposition home or self-care (01) ==
LOC: ER 19:15
PROVIDERS: Student in an Organized Health Care Education/Training Program
DX: R07.89 Other chest pain (principal); J44.9 Chronic obstructive pulmonary disease, unspecified; I50.9 Heart failure, unspecified; E03.9 Hypothyroidism, unspecified; K21.9 Gastro-esophageal reflux disease without esophagitis; F17.210 Nicotine dependence, cigarettes, uncomplicated; Z79.899 Other long term (current) drug therapy; Z99.81 Dependence on supplemental oxygen
CPT/HCPCS: 71045; 80053; 83735; 84484; 85025; 94640; 94664; J1885

== ENCOUNTER 2023-05-11 18:37 | Emergency (ER) | payer OTHER ==
[~2023-05-11] VITALS: Ht 162.6 cm; Wt 71.7 kg
[2023-05-11 19:13] LABS: BASOPHILS ABSOLUTE AUTO 0.02 K/mm3 (0.00-0.23); BASOPHILS PERCENT AUTO 0 % (0-2); EOSINOPHILS PERCENT AUTO 0 % (0-6); Hematocrit 41.1 % (33.0-51.0); Hemoglobin 12.7 g/dL (11.5-16.0); IMMATURE GRAN ABSOLUTE AUTO 0.03 K/mm3 (0.00-0.10); IMMATURE GRAN PERCENT AUTO 0 % (0-1); LYMPHOCYTES ABSOLUTE AUTO 0.93 K/mm3 (0.84-5.20); LYMPHOCYTES PERCENT AUTO 12 % (21-46); MONOCYTES ABSOLUTE AUTO 0.21 K/mm3 (0.16-1.47); MONOCYTES PERCENT AUTO 3 % (4-13); Mean Corpuscular HGB 27.4 pg (26.0-34.0); Mean Corpuscular HGB Conc 30.9 g/dL (31.5-36.5); Mean Corpuscular Volume 89 fL (80-100); Mean Platelet Volume 9.5 fL (9.1-12.4); NEUTROPHILS ABSOLUTE AUTO 6.47 K/mm3 (1.96-9.15); NEUTROPHILS PERCENT AUTO 85 % (41-73); Platelet Count 306 K/mm3 (150-400); RDW Coefficient Variation 20.2 % (11.7-14.2); RDW Standard Deviation 65.9 fL (35.1-46.3); Red Blood Cell Count 4.63 M/mm3 (3.80-5.20); White Blood Cell Count 7.66 K/mm3 (4.00-11.30)
[2023-05-11 19:34] LABS: Albumin, Blood 3.6 g/dL (3.4-5.0); Bilirubin, Total 0.2 mg/dL (0.1-1.0); Calcium, Blood 9.1 mg/dL (8.5-10.1); Creatinine, Blood 0.63 mg/dL (0.40-1.00); Globulin, Blood 3.6 g/dL (2.2-4.0); Potassium, Blood 4.6 mmol/L (3.5-5.5); Total Protein, Blood 7.2 g/dL (6.4-8.2)
[2023-05-11 19:44] LABS: Influenza A, PCR NEGATIVE (NEGATIVE); Influenza B, PCR NEGATIVE (NEGATIVE); Resp Syncytial Virus, PCR NEGATIVE (NEGATIVE); SARS-Cov-2 (COVID-19) PCR, MMC NEGATIVE (NEGATIVE)
[2023-05-11 21:20] VITALS: BP 143/70
[2023-05-11] MEDS ORDERED: PRED20 PO (21:35)
== END 2023-05-11 21:44 | disposition home or self-care (01) ==
LOC: ER 18:37
PROVIDERS: Student in an Organized Health Care Education/Training Program
DX: R07.89 Other chest pain (principal); R06.02 Shortness of breath; Z79.899 Other long term (current) drug therapy; Z79.52 Long term (current) use of systemic steroids; J44.9 Chronic obstructive pulmonary disease, unspecified; K21.9 Gastro-esophageal reflux disease without esophagitis; E03.9 Hypothyroidism, unspecified; I50.9 Heart failure, unspecified; F17.210 Nicotine dependence, cigarettes, uncomplicated
CPT/HCPCS: 0241U; 71046; 80053; 84484; 85025; 93005; 93010; 99284-25

== ENCOUNTER 2023-07-23 20:51 | Emergency (ER) | payer OTHER ==
[~2023-07-23] VITALS: Ht 162.6 cm; Wt 70.8 kg
[2023-07-23 21:01] VITALS: BP 128/61
[2023-07-23 21:21] LABS: BASOPHILS ABSOLUTE AUTO 0.03 K/mm3 (0.00-0.23); BASOPHILS PERCENT AUTO 1 % (0-2); EOSINOPHILS ABSOLUTE AUTO 0.12 K/mm3 (0.00-0.68); EOSINOPHILS PERCENT AUTO 2 % (0-6); Hematocrit 43.2 % (33.0-51.0); IMMATURE GRAN ABSOLUTE AUTO 0.01 K/mm3 (0.00-0.10); IMMATURE GRAN PERCENT AUTO 0 % (0-1); LYMPHOCYTES ABSOLUTE AUTO 2.98 K/mm3 (0.84-5.20); LYMPHOCYTES PERCENT AUTO 45 % (21-46); MONOCYTES PERCENT AUTO 11 % (4-13); Mean Corpuscular HGB 30.7 pg (26.0-34.0); Mean Corpuscular HGB Conc 32.4 g/dL (31.5-36.5); Mean Corpuscular Volume 95 fL (80-100); Mean Platelet Volume 9.7 fL (9.1-12.4); NEUTROPHILS ABSOLUTE AUTO 2.78 K/mm3 (1.96-9.15); NEUTROPHILS PERCENT AUTO 42 % (41-73); Platelet Count 253 K/mm3 (150-400); RDW Coefficient Variation 12.9 % (11.7-14.2); RDW Standard Deviation 45.5 fL (35.1-46.3); Red Blood Cell Count 4.56 M/mm3 (3.80-5.20); White Blood Cell Count 6.62 K/mm3 (4.00-11.30)
[2023-07-23 22:03] LABS: Alanine Aminotransfer (ALT/SGP 27 U/L (12-78); Albumin, Blood 3.6 g/dL (3.4-5.0); Alk Phos 84 U/L (50-136); Anion Gap Unable to Calculate mmol/L (6-16); Aspartate Aminotrans (AST/SGOT 16 U/L (12-37); Bilirubin, Total 0.2 mg/dL (0.1-1.0); Blood Urea Nitrogen 14 mg/dL (8-24); CO2, Blood 35 mmol/L (21-32); Calcium, Blood 9.2 mg/dL (8.5-10.1); Chloride, Blood 108 mmol/L (98-108); Creatinine, Blood 0.45 mg/dL (0.40-1.00); Globulin, Blood 3.6 g/dL (2.2-4.0); Glomerular Filtration Rate 107 (60-); Glucose, Blood 111 mg/dL (70-99); Sodium, Blood 142 mmol/L (136-145); Total Protein, Blood 7.2 g/dL (6.4-8.2)
== END 2023-07-23 22:50 | disposition left against medical advice (07) ==
LOC: ER 20:51
PROVIDERS: Student in an Organized Health Care Education/Training Program
DX: R07.9 Chest pain, unspecified (principal); Z53.29 Procedure and treatment not carried out because of patient's decision for other reasons; Z99.81 Dependence on supplemental oxygen
CPT/HCPCS: 71046; 80053; 83690; 83880; 84484; 85025; 93005; 93010; 99282-25

== ENCOUNTER 2023-11-23 17:06 | Emergency (ER) | payer BC ==
[~2023-11-23] VITALS: Ht 162.6 cm; Wt 71.2 kg
[2023-11-23 17:34] VITALS: BP 129/90
[2023-11-23] MEDS ORDERED: PredniSONE 20 MG Tab PO ONE (18:25)
[2023-11-23] MEDS ORDERED: Amoxicillin/Clavulanate K 875 MG Tab PO ONE (18:25)
[2023-11-23] MEDS ORDERED: Prednisone20 MG PO (18:25)
[2023-11-23] MEDS ORDERED: AMOCLA875 PO (18:25)
== END 2023-11-23 18:38 | disposition home or self-care (01) ==
LOC: ER 17:06
DX: J01.90 Acute sinusitis, unspecified (principal); J44.1 Chronic obstructive pulmonary disease with (acute) exacerbation; E07.9 Disorder of thyroid, unspecified; F25.9 Schizoaffective disorder, unspecified; F41.9 Anxiety disorder, unspecified; Z79.02 Long term (current) use of antithrombotics/antiplatelets; Z79.52 Long term (current) use of systemic steroids; Z79.51 Long term (current) use of inhaled steroids; Z79.899 Other long term (current) drug therapy
CPT/HCPCS: 71046; A9270; J7512

== ENCOUNTER 2024-01-15 11:45 | Emergency (ER) | payer BC, OTHER ==
[~2024-01-15] VITALS: Ht 162.6 cm; Wt 70.8 kg
[~2024-01-15 11:45] MED LIST changes: +AMOCLA875 PO; +OCUFLOX510 RIGHTEAR
[2024-01-15] MEDS ORDERED: Ipratropium/Albuterol SulF 2.5-0.5MG/3 ML Amp INH ONE (12:20)
[2024-01-15] MEDS ORDERED: Albuterol 2.5 MG/3 ML VIAL INH SCH (12:20)
[2024-01-15] MEDS ORDERED: Azithromycin 250 MG Tab PO ONE (12:20)
[2024-01-15] MEDS ORDERED: PredniSONE 20 MG Tab PO ONE (12:20)
[2024-01-15 12:22] LABS: BASOPHILS ABSOLUTE AUTO 0.02 K/mm3 (0.00-0.23); BASOPHILS PERCENT AUTO 0 % (0-2); EOSINOPHILS ABSOLUTE AUTO 0.05 K/mm3 (0.00-0.68); EOSINOPHILS PERCENT AUTO 1 % (0-6); Hemoglobin 12.8 g/dL (11.5-16.0); IMMATURE GRAN ABSOLUTE AUTO 0.02 K/mm3 (0.00-0.10); IMMATURE GRAN PERCENT AUTO 0 % (0-1); LYMPHOCYTES ABSOLUTE AUTO 1.47 K/mm3 (0.84-5.20); LYMPHOCYTES PERCENT AUTO 23 % (21-46); MONOCYTES ABSOLUTE AUTO 0.61 K/mm3 (0.16-1.47); MONOCYTES PERCENT AUTO 9 % (4-13); Mean Corpuscular HGB 30.8 pg (26.0-34.0); Mean Corpuscular Volume 96 fL (80-100); Mean Platelet Volume 9.6 fL (9.1-12.4); NEUTROPHILS ABSOLUTE AUTO 4.34 K/mm3 (1.96-9.15); NEUTROPHILS PERCENT AUTO 67 % (41-73); Platelet Count 287 K/mm3 (150-400); RDW Coefficient Variation 11.9 % (11.7-14.2); RDW Standard Deviation 41.9 fL (35.1-46.3); Red Blood Cell Count 4.16 M/mm3 (3.80-5.20); White Blood Cell Count 6.51 K/mm3 (4.00-11.30)
[2024-01-15 12:51] LABS: Albumin, Blood 3.2 g/dL (3.4-5.0); Albumin/Globulin Ratio 0.7 (0.8-1.8); Bilirubin, Total 0.3 mg/dL (0.1-1.0); Calcium, Blood 9.7 mg/dL (8.5-10.1); Creatinine, Blood 0.55 mg/dL (0.40-1.00); Globulin, Blood 4.3 g/dL (2.2-4.0); Potassium, Blood 4.1 mmol/L (3.5-5.5); Total Protein, Blood 7.5 g/dL (6.4-8.2)
[2024-01-15 13:30] VITALS: BP 129/94
[2024-01-15] MEDS ORDERED: PRED20 PO (14:40)
[2024-01-15] MEDS ORDERED: AZIT250 PO (14:40)
== END 2024-01-15 14:49 | disposition home or self-care (01) ==
LOC: ER 11:45
PROVIDERS: Physician Assistant
DX: J44.1 Chronic obstructive pulmonary disease with (acute) exacerbation (principal); J96.11 Chronic respiratory failure with hypoxia; I50.9 Heart failure, unspecified; E03.9 Hypothyroidism, unspecified; F25.9 Schizoaffective disorder, unspecified; K21.9 Gastro-esophageal reflux disease without esophagitis; F17.210 Nicotine dependence, cigarettes, uncomplicated; Z79.52 Long term (current) use of systemic steroids; Z79.85 Long-term (current) use of injectable non-insulin antidiabetic drugs; Z79.02 Long term (current) use of antithrombotics/antiplatelets; Z79.51 Long term (current) use of inhaled steroids
CPT/HCPCS: 71046; 80053; 84145; 85025; 93005; 93010; 94644; 94664; 99284-25; A9270; J7512

== ENCOUNTER → 2024-06-02 | Outpatient (CLI) | payer OTHER | LOC: LAB SHORT 19:00 → LAB 19:00 | DX: N39.0 Urinary tract infection, site not specified (principal) | CPT/HCPCS: 87086 ==

== ENCOUNTER 2024-12-02 08:27 | Day surgery (SDC) | payer MEDICARE ==
[~2024-12-02] VITALS: Ht 162.6 cm; Wt 74.0 kg
[2024-12-02] VITALS (7 sets, daily range): BP systolic 106–135; BP diastolic 71–118
[~2024-12-02 08:27] MED LIST changes: +ATOR40TA PO; +CANNABIS; +EUTHYROX25 MC1 PO; +FURO20 PO; +Flonase 0.05% N16 GM; +IPRAT-ALBUT 0.5-3 ML INH; +METO50ER PO; +POTA10T PO; +PSEU120ER; +SERT50 PO; +SYMBICORT 16010.2 GM INH; +TRAZ150T57 PO; +[UNRECOGNIZED DRUG - CODE]
[2024-12-02] MEDS ORDERED: Verapamil HCL 2.5 MG/ML 2ML Injection ONE (09:27)
[2024-12-02] MEDS ORDERED: Heparin Sodium 1000 Units/ML 10ML MDV ONE (09:27)
[2024-12-02] MEDS ORDERED: NS 1,000 ML IV ONE ×2 (09:27→09:44)
[2024-12-02] MEDS ORDERED: NS 250 ML IV ONE (09:27)
[2024-12-02] MEDS ORDERED: Midazolam HCl 1MG / ML 2ML Vial ONE (09:44)
[2024-12-02] MEDS ORDERED: FentaNYL Citrate 50 MCG/ML 2 ML Injection ONE (09:44)
--- NOTE | 2024-12-02 12:07 | NUR ---
PT SITTING UP ON BED EATING FOOD. R RAD TR BAND SITE SOFT NON-TENDER WITH NO HEMATOMA, NO PULSATILE BLEEDING AND RIGHT WRIST BOARD IN PLACE. CALL LIGHT IN REACH.
--- NOTE | 2024-12-02 12:25 | NUR ---
7 CC OF AIR REMOVED OUT OF NOW DEFLATED RIGHT TR BAND OVER 5 MIN. R TR BAND SOFT NON-TENDER WITH NO HEMATOMA, NO PULSATILE BLEEDING AND RIGHT WRIST BOARD IN PLACE.
--- NOTE | 2024-12-02 12:29 | NUR ---
NO CHANGES TO R RAD DEFLATED TR BAND SITE.
--- NOTE | 2024-12-02 12:30 | NUR ---
PT TR BAND FULLY DEFLATED. NO BLEEDING NOTED. VSS. NADN. PT RESTING COMFORTABLY.
--- NOTE | 2024-12-02 12:38 | NUR ---
NO CHANGES TO DEFLATED R TR BAND SITE.
--- NOTE | 2024-12-02 13:08 | NUR ---
PT VERBALIZES UNDERSTANDING WRITTEN AND VERBAL INSTRUCTIONS. DENIES QUESTIONS. PT IV DC'D. CATH INTACT. PRESSURE DSG APPLIED. PT DRESSES SELF WITHOTU DIFF. PT TR BAND REMOVED. DOT DRESSING WITH SPLINT IN PLACE TO R RADIAL. NO BLEEDING OR HEMATOMA NOTED. VSS. NADN. PT DC TO HOME VIA HOME WC BY S/O
== END 2024-12-02 13:08 | disposition home or self-care (01) ==
LOC: MHTC 08:27
DX: I25.118 Atherosclerotic heart disease of native coronary artery with other forms of angina pectoris (principal); F31.9 Bipolar disorder, unspecified; E78.00 Pure hypercholesterolemia, unspecified; K21.9 Gastro-esophageal reflux disease without esophagitis; J44.9 Chronic obstructive pulmonary disease, unspecified; I50.9 Heart failure, unspecified; Z79.82 Long term (current) use of aspirin; Z79.899 Other long term (current) drug therapy
CPT/HCPCS: 76937; 93458; 99152; C1769; C1887; C1894; J1644; J2250; J3010; J7030; J7050; Q9967

== ENCOUNTER → 2025-03-23 | Outpatient (CLI) | payer MEDICARE ==
[2025-03-23 15:32] LABS: BASOPHILS ABSOLUTE AUTO 0.02 K/mm3 (0.00-0.23); BASOPHILS PERCENT AUTO 0 % (0-2); EOSINOPHILS ABSOLUTE AUTO 0.09 K/mm3 (0.00-0.68); EOSINOPHILS PERCENT AUTO 2 % (0-6); Hematocrit 42.0 % (33.0-51.0); Hemoglobin 13.2 g/dL (11.5-16.0); IMMATURE GRAN ABSOLUTE AUTO 0.01 K/mm3 (0.00-0.10); IMMATURE GRAN PERCENT AUTO 0 % (0-1); LYMPHOCYTES ABSOLUTE AUTO 1.76 K/mm3 (0.84-5.20); LYMPHOCYTES PERCENT AUTO 37 % (21-46); MONOCYTES ABSOLUTE AUTO 0.36 K/mm3 (0.16-1.47); MONOCYTES PERCENT AUTO 8 % (4-13); Mean Corpuscular HGB Conc 31.4 g/dL (31.5-36.5); Mean Corpuscular Volume 97 fL (80-100); NEUTROPHILS ABSOLUTE AUTO 2.53 K/mm3 (1.96-9.15); NEUTROPHILS PERCENT AUTO 53 % (41-73); NRBC ABSOLUTE 0.00 K/mm3 (0.00-0.02); NRBC Auto 0.0 /100 WBC (0.0-0.2); Platelet Count 225 K/mm3 (150-400); RDW Coefficient Variation 11.9 % (11.7-14.2); RDW Standard Deviation 43.2 fL (35.1-46.3)
[2025-03-23 16:58] LABS: Alanine Aminotransfer (ALT/SGP 30 U/L (12-78); Albumin, Blood 3.5 g/dL (3.4-5.0); Albumin/Globulin Ratio 1.1 (0.8-1.8); Anion Gap 4 mmol/L (3-11); Aspartate Aminotrans (AST/SGOT 9 U/L (12-37); Bilirubin, Total 0.2 mg/dL (0.1-1.0); Blood Urea Nitrogen 12 mg/dL (8-24); CHOL/HDL RATIO 2.7; CO2, Blood 34 mmol/L (21-32); Calcium, Blood 8.8 mg/dL (8.5-10.1); Chloride, Blood 105 mmol/L (98-108); Cholesterol 144 mg/dL (50-200); Creatinine, Blood 0.70 mg/dL (0.40-1.00); Globulin, Blood 3.1 g/dL (2.2-4.0); Glucose, Blood 122 mg/dL (70-99); HDL Cholesterol 54 mg/dL (>39); LDL/HDL RATIO 1.1; Low Density Lipoprotein Chol 58 mg/dL (0-110); Potassium, Blood 3.7 mmol/L (3.5-5.5); Sodium, Blood 139 mmol/L (136-145); Thyroid Stimulating Hormone 3.250 uIU/mL (0.360-4.800); Total Protein, Blood 6.6 g/dL (6.4-8.2); Triglycerides 161 mg/dL (30-160); Very Low Density Lipoprot Chol 32 mg/dL (6-32)
== END ==
LOC: LAB SHORT 10:50 → LAB 10:50
PROVIDERS: Family Medicine
DX: Z51.81 Encounter for therapeutic drug level monitoring (principal); Z79.899 Other long term (current) drug therapy
CPT/HCPCS: 80053; 80061; 82306; 83036; 84443; 85025